=== PATIENT | male | born 2000 | race Asian ===

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

== ENCOUNTER 2019-02-06 22:41 | Emergency (ER) | payer OTHER ==
[2019-02-06 22:50] VITALS: BP 132/65
--- NOTE | 2019-02-06 22:57 | ED Physician Documentation ---
PD HPI URI - Stated complaint Stated Complaint: L EAR PX - Chief complaint Chief Complaint: Heent - History obtained from History obtained from: Patient - History of Present Illness Timing - onset: Today Timing duration: Days (1) Timing details: Abrupt onset, Still present, Waxing and waning Associated symptoms: Ear pain (left ear), Nasal congestion, Sinus pain. No: Fever, Sore throat, Productive cough Contributing factors: No: Sick contact Similar symptoms before: Has not had sx before (He has a history of environmental allergies and uses Flonase regularly and albuterol inhaler as needed. He has not had ear pain like this previously however.) Recently seen: Not recently seen Review of Systems Constitutional: denies: Fever Ears: reports: Loss of hearing (left ear), Ear pain. denies: Drainage/discharge Nose: reports: Congestion, Sinus pressure / pain. denies: Rhinorrhea / runny nose Throat: denies: Sore throat Cardiac: denies: Chest pain / pressure Respiratory: reports: Dyspnea, Wheezing. denies: Cough GI: denies: Nausea, Vomiting, Diarrhea PD PAST MEDICAL HISTORY - Past Medical History Cardiovascular: None Endocrine/Autoimmune: None GI: None : None HEENT: None Psych: None Musculoskeletal: None Derm: None - Past Surgical History Past Surgical History: No - Present Medications Home Medications: Ambulatory Orders Medication Instructions Recorded Confirmed Amoxicillin 500 mg PO TID #21 capsule 02/06/19 Cetirizine [ZyrTEC] 10 mg PO DAILY #20 tablet 02/06/19 Dexamethasone [Decadron] 4 mg PO DAILY #5 tablet 02/06/19 - Allergies Allergies/Adverse Reactions: Allergies Allergy/AdvReac Type Severity Reaction Status Date / Time iodine AdvReac Severe Hives Verified 03/13/18 19:58 - Social History Does the pt smoke?: No Smoking Status: Never smoker Does the pt drink ETOH?: No Does the pt have substance abuse?: No - Immunizations Immunizations are current?: Yes - POLST Patient has POLST: No PD ED PE NORMAL - Vitals Vital signs reviewed: Yes - General General: Alert and oriented X 3, No acute distress, Well developed/nourished - HEENT HEENT: Pharynx benign. No: Ears normal (There is fluid behind both eardrums but much more on the left. There is some mild redness of the eardrum on the left.) - Neck Neck: Supple, no meningeal sign, No adenopathy - Cardiac Cardiac: RRR, No murmur - Respiratory Respiratory: Clear bilaterally - Abdomen Abdomen: Soft, Non tender - Derm Derm: Normal color, Warm and dry Results - Vitals Vitals: Vital Signs - 24 hr 02/06/19 22:47 Temperature 36.4 C L Heart Rate 49 L Respiratory 20 Rate Blood Pressure 132/65 H O2 Saturation 98 Oxygen O2 Source Room air PD MEDICAL DECISION MAKING - ED course Complexity details: considered differential (He has had some congestion runny nose and sinus pressure. There is fluid behind both eardrums but more on the left. There is some mild redness that could be suggestive of early infection.), d/w patient Departure - Departure Disposition: 01 Home, Self Care Clinical Impression: Otitis media Qualifiers: Otitis media type: suppurative Chronicity: acute Laterality: left Recurrence: non-recurrent Spontaneous tympanic membrane rupture: without spontaneous rupture Qualified Code(s): H66.002 - Acute suppurative otitis media without spontaneous rupture of ear drum, left ear Condition: Stable Record reviewed to determine appropriate education?: Yes Instructions: ED Otitis Media Serous Adult Follow-Up: Elmer Juan DO [Primary Care Provider] - Prescriptions: Amoxicillin 500 mg PO TID #21 capsule Cetirizine [ZyrTEC] 10 mg PO DAILY #20 tablet Dexamethasone [Decadron] 4 mg PO DAILY #5 tablet Comments: There does appear to be fluid buildup behind the eardrums but more on the left. There is some redness that could suggest early infection. Continue your current medications. Add Decadron steroid orally for 5 more days to reduce inflammation through the sinuses and eustachian tube and promote drainage. Add cetirizine antihistamine to decrease the fluid. Amoxicillin as directed for a week for the apparent early infection. Use Tylenol or ibuprofen as needed for pains. Recheck if not improved over the next few days. Discharge Date/Time: 02/06/19 23:27
[2019-02-06] MEDS ORDERED: CHERRY SYRUP 10 ML UDC PO ONE (23:11)
[2019-02-06] MEDS ORDERED: DEXAMETHASONE 10 MG/ML VIAL PO STA (23:11)
[2019-02-06] MEDS ORDERED: AMOXICILLIN 250 MG CAPSULE PO STA (23:11)
[2019-02-06] MEDS ORDERED: diphenhydrAMINE 25 MG CAPSULE PO STA (23:11)
[2019-02-06] MEDS ORDERED: IBUPROFEN 600 MG TABLET PO STA (23:11)
--- NOTE | 2019-02-07 14:07 | ED Physician Documentation ---
ED Addendum - Addendum Addendum: 02/07/19 14:07 [facility] pharmacy does not have cetirizine, auth sub to loratidine same sig.
== END 2019-02-06 23:27 | disposition home or self-care (01) ==
LOC: ED 22:41
DX: H66.002 Acute suppurative otitis media without spontaneous rupture of ear drum, left ear (principal)
CPT/HCPCS: 99283; A9270

== ENCOUNTER 2023-03-05 04:52 | Emergency (ER) | payer OTHER ==
[2023-03-05 05:05] VITALS: BP 146/83
--- NOTE | 2023-03-05 05:21 | ED Physician Documentation ---
History of Present Illness - Stated complaint Stated Complaint: EYE INJ - Chief complaint Chief Complaint: Exposure - History obtained from History obtained from: Patient - Additonal information Additional information: 22-year-old man presents to the ED after splashing urine in his eye while in the course of work at [employer]. He denies any pain, vision changes. He is previously healthy.He states concerned because the patient in question had a urinary tract infection but PD PAST MEDICAL HISTORY - Past Medical History Cardiovascular: None Endocrine/Autoimmune: None GI: None : None HEENT: None Psych: None Musculoskeletal: None Derm: None - Past Surgical History Past Surgical History: No - Present Medications Home Medications: Ambulatory Orders Medication Instructions Recorded Confirmed No Known Home Medications 03/05/23 03/05/23 - Allergies Allergies/Adverse Reactions: Allergies Allergy/AdvReac Type Severity Reaction Status Date / Time iodine AdvReac Severe Hives Verified 03/05/23 05:01 - Social History Does the pt smoke?: No Smoking Status: Never smoker Does the pt drink ETOH?: No Does the pt have substance abuse?: No - Immunizations Immunizations are current?: Yes - POLST Patient has POLST: No PD ED PE NORMAL - Vitals Vital signs reviewed: Yes - General General: Alert and oriented X 3, No acute distress, Well developed/nourished - HEENT HEENT: Atraumatic, PERRL, EOMI Results - Vitals Vitals: Vital Signs - 24 hr 03/05/23 04:59 Temperature 36.5 C Heart Rate 72 Respiratory 17 Rate Blood Pressure 146/83 H O2 Saturation 99 Oxygen O2 Source Room air PD Medical Decision Making - ED course ED course: 22-year-old man presents to the ED after splashing a patient's urine in his eye while in the course of work as a [employer] at [employer]. I advised him that the risk of infection transmission is minimal to none. He has benign exam. Return precautions were discussed. Plan to follow-up routinely with his primary care provider for blood pressure recheck. Departure - Departure Disposition: 01 Home, Self Care Clinical Impression: Encounter for medical screening examination Condition: Good Instructions: ED Screening Exam Medical Nonurgent Comments: You were seen in the emergency department for splashed urine in the eye. You have extremely low risk of infection transmission. Please follow-up with your primary care provider routinely. Return to the emergency department if you have other concerns.
== END 2023-03-05 05:48 | disposition home or self-care (01) ==
LOC: ED 04:52
DX: Z77.21 Contact with and (suspected) exposure to potentially hazardous body fluids (principal)
CPT/HCPCS: 99281; 99282